=== PATIENT | male | born 2000 | race Caucasian/White ===

== ENCOUNTER 2021-02-04 14:17 | Emergency (ER) | payer BC ==
[2021-02-04 14:31] VITALS: BP 109/72; PULSE 69; RESP 20; TEMP 98
--- NOTE | 2021-02-04 15:11 | ED ---
Chest Pain HPI - General Chief Complaint: Chest Pain Stated Complaint: Sent from [facility] Time Seen by Provider: 02/04/21 14:38 Source: patient Mode of arrival: ambulatory Limitations: no limitations - History of Present Illness Initial Comments: 20-year-old male presents to emergency Department with a chief complaint of palpitations. Patient reports he began feeling the symptoms last night after he smoked a pH CVA. States is not his first time using this today but he has never felt symptoms like this before. States the symptoms continued this morning given that he was not using anything. Patient reports his heart rate would fluctuate between 60 and 100 bpm. States it would go from high to low with a matter of seconds. Reports feeling that his heart would "skip a beat" and then suddenly accelerate. Father states they have a history of A. fib and the family which she was diagnosed with an early age. Patient reports feeling slightly shortness of breath after draping last night but nothing since. He does have history of asthma as well. He denies any particular chest pain or tightness. Denies any lightheadedness, dizziness, diaphoretic episodes. - Related Data Home Medications Medication Instructions Recorded Confirmed Albuterol Nebulized [Ventolin 2.5 mg INHALATION Q4H PRN 01/07/16 01/07/16 Nebulized] Cetirizine HCl [Zyrtec] 10 mg PO DAILY 01/07/16 01/07/16 Cholecalciferol (Vitamin D3) 50,000 unit PO DAILY 01/07/16 01/07/16 [Vitamin D] Fluticasone Nasal [place] [Flonase 1 spray EA NOSTRIL BID 01/07/16 01/07/16 Nasal [place]] Mometasone/Formoterol [Dulera 100 2 puff INHALATION BID 01/07/16 01/07/16 Mcg/5 Mcg Inhaler] Allergies Allergy/AdvReac Type Severity Reaction Status Date / Time No Known Allergies Allergy Verified 02/04/21 14:31 Review of Systems ROS Statement: Those systems with pertinent positive or pertinent negative responses have been documented in the HPI. ROS Other: All systems not noted in ROS Statement are negative. EKG Findings - EKG Comments: EKG Findings:: Sinus arrhythmia. Ventricular rate 65, TX 164, QRS 90, QTC 413. Past Medical History Past Medical History: Asthma Additional Past Medical History / Comment(s): mold allergy History of Any Multi-Drug Resistant Organisms: None Reported Past Surgical History: No Surgical Hx Reported Past Psychological History: No Psychological Hx Reported Smoking Status: Vaper Past Alcohol Use History: None Reported Past Drug Use History: Marijuana General Exam Limitations: no limitations General appearance: alert, in no apparent distress Head exam: Present: atraumatic, normocephalic, normal inspection Eye exam: Present: normal appearance, PERRL, EOMI Pupils: Present: normal accommodation ENT exam: Present: normal exam, normal oropharynx, mucous membranes moist, TM's normal bilaterally, normal external ear exam Neck exam: Present: normal inspection, full ROM. Absent: tenderness Respiratory exam: Present: normal lung sounds bilaterally. Absent: respiratory distress, wheezes, rales, rhonchi, stridor, chest wall tenderness, accessory muscle use Cardiovascular Exam: Present: regular rate, normal rhythm, normal heart sounds. Absent: systolic murmur Extremities exam: Present: normal inspection, full ROM, normal capillary refill, other (Palpable ulnar and radial pulses bilaterally ). Absent: tenderness, pedal edema, joint swelling, calf tenderness Back exam: Present: normal inspection, full ROM. Absent: tenderness, CVA tenderness (R), CVA tenderness (L) Neurological exam: Present: alert, oriented X3, normal gait Psychiatric exam: Present: normal affect, normal mood. Absent: depressed Skin exam: Present: warm, dry, intact, normal color Course Vital Signs 02/04/21 02/04/21 02/04/21 14:29 15:36 16:34 Temperature 98.0 F 98.0 F Pulse Rate 69 69 Pulse Rate [ 69 Guest Relations Agent ] Respiratory 20 20 Rate Blood Pressure 109/72 109/72 O2 Sat by Pulse 99 99 Oximetry Chest Pain MDM - MDM 20-year-old male presents to emergency Department with a chief complaint of palpitations. EKG showing sinus arrhythmia. Chest x-ray unremarkable. Negative laboratory workup. Physical examination is unremarkable. I suspect the patient's symptoms were secondary to smoking THC vape. I advised him and the father to follow up with the primary care physician. Return parameters discussed with them were understanding and agreeable. Case discussed with Dr. Rai. Disposition Clinical Impression: Heart palpitations Disposition: HOME SELF-CARE Condition: Stable Instructions (If sedation given, give patient instructions): Heart Palpitations (DC) Additional Instructions: Please return to the Emergency Department if symptoms worsen or any other concerns. Is patient prescribed a controlled substance at d/c from ED?: No Referrals: José Miguel Robles MD [Primary Care Provider] - 1-2 days Time of Disposition: 16:21
[2021-02-04 15:27] LABS: Basophils # (A) 0.1 k/uL (0-0.2); Basophils % (A) 1 %; Eosinophils # (A) 0.3 k/uL (0-0.7); Eosinophils % (A) 4 %; HCT 41.4 % (39.0-53.0); HGB 14.2 gm/dL (13.0-17.5); Lymphocytes # (A) 2.6 k/uL (1.0-4.8); Lymphocytes % (A) 37 %; MCH 28.1 pg (25.0-35.0); MCHC 34.2 g/dL (31.0-37.0); MCV 82.1 fL (80.0-100.0); Mean Platelet Volume 7.1; Monocytes # (A) 0.7 k/uL (0-1.0); Monocytes % (A) 9 %; Neutrophils # (A) 3.4 k/uL (1.3-7.7); Neutrophils % (A) 48 %; Platelet Count 251 k/uL (150-450); RBC 5.05 m/uL (4.30-5.90); RDW 12.9 % (11.5-15.5); WBC 7.2 k/uL (4.0-11.0)
[2021-02-04 15:35] LABS: Partial Thromboplastin Time 25.7 sec (22.0-30.0)
[2021-02-04 15:37] LABS: ALT 11 U/L (4-49); AST 17 U/L (17-59); African American GFR (CKD) >90 (>60 ml/min/1.73 sqM); Albumin 4.6 g/dL (3.5-5.0); Alkaline Phosphatase 71 U/L (38-126); Anion Gap 8 mmol/L; Blood Urea Nitrogen 13 mg/dL (9-20); Carbon Dioxide 26 mmol/L (22-30); Chloride 104 mmol/L (98-107); Glucose 85 mg/dL (74-99); Magnesium 2.1 mg/dL (1.6-2.3); Non-African American GFR(CKD) >90 (>60 ml/min/1.73 sqM); Potassium 4.6 mmol/L (3.5-5.1); Sodium 138 mmol/L (137-145); Total Bilirubin 0.4 mg/dL (0.2-1.3); Total Protein 7.1 g/dL (6.3-8.2)
--- NOTE | 2021-02-04 16:00 | XR ---
EXAMINATION TYPE: XR chest 2V DATE OF EXAM: 02/04/2021 COMPARISON: NONE HISTORY: Chest pain TECHNIQUE: Frontal and lateral views of the chest are obtained. FINDINGS: There is no focal air space opacity, pleural effusion, or pneumothorax seen. The cardiac silhouette size is within normal limits. The osseous structures are intact. IMPRESSION: No acute cardiopulmonary process.
== END 2021-02-04 16:37 | disposition home or self-care (01) ==
LOC: EC 14:17
DX: R00.2 Palpitations (principal); R07.9 Chest pain, unspecified; R06.02 Shortness of breath; J45.909 Unspecified asthma, uncomplicated; F12.90 Cannabis use, unspecified, uncomplicated; F17.290 Nicotine dependence, other tobacco product, uncomplicated; Z79.51 Long term (current) use of inhaled steroids
CPT/HCPCS: 36415; 71046; 80053; 83735; 84484; 85025; 85610; 85730; 93005; 99285

== ENCOUNTER 2021-03-13 02:33 | Emergency (ER) | payer BC ==
[2021-03-13 02:42] VITALS: RESP 16; TEMP 97.6
[2021-03-13] MEDS ORDERED: IPRATROPIUM-ALBUTEROL 3 ML NEB INHALATION STA (02:55)
--- NOTE | 2021-03-13 02:55 | ED ---
Chest Pain HPI - General Chief Complaint: Chest Pain Stated Complaint: Chest pain Time Seen by Provider: 03/13/21 02:41 Source: patient, family Mode of arrival: wheelchair Limitations: no limitations - Related Data Home Medications Medication Instructions Recorded Confirmed Albuterol Nebulized [Ventolin 2.5 mg INHALATION Q4H PRN 01/07/16 01/07/16 Nebulized] Cetirizine HCl [Zyrtec] 10 mg PO DAILY 01/07/16 01/07/16 Cholecalciferol (Vitamin D3) 50,000 unit PO DAILY 01/07/16 01/07/16 [Vitamin D] Fluticasone Nasal [place] [Flonase 1 spray EA NOSTRIL BID 01/07/16 01/07/16 Nasal [place]] Mometasone/Formoterol [Dulera 100 2 puff INHALATION BID 01/07/16 01/07/16 Mcg/5 Mcg Inhaler] Allergies Allergy/AdvReac Type Severity Reaction Status Date / Time No Known Allergies Allergy Verified 03/13/21 02:39 Review of Systems ROS Statement: Those systems with pertinent positive or pertinent negative responses have been documented in the HPI. ROS Other: All systems not noted in ROS Statement are negative. EKG Findings - EKG Comments: EKG Findings:: EKG is sinus rhythm 71 AR 162 QRS 100 QTc 404 Past Medical History Past Medical History: Asthma Additional Past Medical History / Comment(s): mold allergy History of Any Multi-Drug Resistant Organisms: None Reported Past Surgical History: No Surgical Hx Reported Past Psychological History: No Psychological Hx Reported Smoking Status: Vaper Past Alcohol Use History: None Reported Past Drug Use History: Marijuana General Exam Limitations: no limitations Course Vital Signs 03/13/21 02:39 Temperature 97.6 F Pulse Rate 82 Respiratory 16 Rate Blood Pressure 118/75 O2 Sat by Pulse 100 Oximetry Disposition Clinical Impression: Atypical chest pain, Panic attack Disposition: HOME SELF-CARE Condition: Good Instructions (If sedation given, give patient instructions): Chest Pain (ED) Is patient prescribed a controlled substance at d/c from ED?: No Referrals: José Miguel Robles MD [Primary Care Provider] - 1-2 days
[2021-03-13 03:48] VITALS: BP 120/83; PULSE 67
== END 2021-03-13 03:47 | disposition home or self-care (01) ==
LOC: EC 02:33
DX: F41.0 Panic disorder [episodic paroxysmal anxiety] (principal); R07.89 Other chest pain; J45.909 Unspecified asthma, uncomplicated; F17.290 Nicotine dependence, other tobacco product, uncomplicated; F12.90 Cannabis use, unspecified, uncomplicated; Z79.51 Long term (current) use of inhaled steroids
CPT/HCPCS: 93005; 99284

== ENCOUNTER → 2024-02-12 | Outpatient (CLI) | payer BC ==
--- NOTE | 2024-02-12 16:57 | CA ---
Transthoracic Echo Report Name: Darwin Price Age: 23 Gender: M : 2000 Exam Date: 02/12/2024 14:18 Exam Location: [place] Ht (in): 73 Wt (lb): 175 Ordering Physician: Aung Ozuna MD Attending/Referring Phys: Elisa Beck PAC Experimental Flight Test Mechanic Meera Wu RDCS Procedure CPT: Indications: R01.1 CARDIAC MURMUR, UNSPECIFIED Cardiac Hx: Technical Quality: Fair Contrast 1: Total Dose (mL): Contrast 2: Total Dose (mL): MEASUREMENTS (Male / Female) Normal Values 2D ECHO LV Diastolic Diameter PLAX 4.9 cm 4.2 - 5.9 / 3.9 - 5.3 cm LV Systolic Diameter PLAX 3.6 cm IVS Diastolic Thickness 1.0 cm 0.6 - 1.0 / 0.6 - 0.9 cm LVPW Diastolic Thickness 1.3 cm 0.6 - 1.0 / 0.6 - 0.9 cm LV Relative Wall Thickness 0.5 RV Internal Dim ED PLAX 3.2 cm LV Diastolic Volume MOD 4C 140.4 cm??? LV Systolic Volume MOD 4C 62.2 cm??? LV Ejection Fraction MOD 4C 55.7 % LV Cardiac Index MOD 4C 2436.1 cm???/min???m??? LV Diastolic Length 4C 9.3 cm LV Systolic Length 4C 6.8 cm LA Volume 58.0 cm??? 18 - 58 / 22 - 52 cm??? LA Volume Index 28.7 cm???/m??? 16 - 28 cm???/m??? M-MODE LV Diastolic Diameter MM 5.8 cm 4.2 - 5.9 / 3.9 - 5.3 cm LV Systolic Diameter MM 4.2 cm LV Cardiac Index MM Teich 2641.2 cm???/min???m??? IVS Diastolic Thickness MM 1.1 cm 0.6 - 1.0 / 0.6 - 0.9 cm LVPW Diastolic Thickness MM 1.1 cm 0.6 - 1.0 / 0.6 - 0.9 cm LV Relative Wall Thickness MM 0.4 0.24 - 0.42 / 0.22 - 0.42 LV Mass Index MM 131.4 g/m??? 49 - 115 / 43 - 95 g/m??? Aortic Root Diameter MM 2.3 cm LA Systolic Diameter MM 3.6 cm LA Ao Ratio MM 1.5 AV Cusp Separation MM 2.2 cm DOPPLER AV Peak Velocity 128.2 cm/s AV Peak Gradient 6.6 mmHg AV Mean Velocity 90.7 cm/s AV Mean Gradient 3.7 mmHg AV Velocity Time Integral 29.3 cm LVOT Peak Velocity 109.7 cm/s LVOT Peak Gradient 4.8 mmHg LVOT Velocity Time Integral 22.0 cm MV Area PHT 5.1 cm??? Mitral E Point Velocity 81.8 cm/s Mitral A Point Velocity 58.0 cm/s Mitral E to A Ratio 1.4 MV Deceleration Time 149.8 ms TR Peak Velocity 176.2 cm/s TR Peak Gradient 12.4 mmHg Right Ventricular Systolic Press 17.4 mmHg FINDINGS Left Ventricle Mildly increased left ventricular mass. Normal Left ventricular size, wall thickness, systolic function with no obvious regional wall motion abnormalities. Normal Left ventricular diastolic filling pattern. Left ventricular ejection fraction is estimated at 55-60 %. Right Ventricle Normal right ventricular size and function. Right ventricular systolic pressure within normal limits. Right Atrium Normal right atrial size. Left Atrium Normal left atrial size. Mitral Valve Structurally normal mitral valve. No mitral stenosis. Mild mitral regurgitation. Aortic Valve Trileaflet aortic valve. No aortic valve stenosis or regurgitation. Tricuspid Valve Structurally normal tricuspid valve. Mild tricuspid regurgitation. Pulmonic Valve Structurally normal pulmonic valve. Pericardium No pericardial effusion. Aorta Normal size aortic root and proximal ascending aorta. CONCLUSIONS LVEF estimated 55% Normal LV cavity size and wall thickness Normal RV size and function No significant valvular dysfunction Previewed by: Dr Kristofer White (Electronically Signed) Final Date: 12 Feb 2024 16:56
== END | disposition home or self-care (01) ==
LOC: RADECHMAIN 14:14
PROVIDERS: ATTEND Family Medicine
DX: R01.1 Cardiac murmur, unspecified (principal)
CPT/HCPCS: 93306

== ENCOUNTER → 2025-01-21 | Outpatient (CLI) | payer BC ==
[2025-01-21 14:53] LABS: Basophils # (A) 0.09 X 10*3/uL (0.00-0.10); Basophils % (A) 1.3 %; Eosinophils # (A) 0.41 X 10*3/uL (0.04-0.35); HCT 44.8 % (39.6-50.0); HGB 14.5 g/dL (13.0-17.0); Lymphocytes # (A) 2.15 X 10*3/uL (0.90-5.00); Lymphocytes % (A) 31.4 %; MCH 27.5 pg (27.0-32.0); MCHC 32.4 g/dL (32.0-37.0); MCV 84.8 FL (80.0-97.0); Mean Platelet Volume 10.1 FL (9.5-12.2); Monocytes # (A) 0.76 X 10*3/uL (0.20-1.00); Monocytes % (A) 11.1 %; NRBC Per 100 WBC 0 X 10*3/uL (0.00-0.01); Neutrophils # (A) 3.42 X 10*3/uL (1.80-7.70); Neutrophils % (A) 49.9 %; Platelet Count 280 X 10*3/uL (140-440); RBC 5.28 X 10*6/uL (4.40-5.60); RDW 13.3 % (11.5-14.5); WBC 6.85 X 10*3/uL (4.50-10.00)
[2025-01-21 15:43] LABS: ALT 24 U/L (10-49); AST 19 U/L (14-35); Albumin 4.5 g/dL (3.8-4.9); Albumin/Globulin Ratio 2.14 Ratio (1.60-3.17); Alkaline Phosphatase 73 U/L (41-126); BUN/Creat Ratio 12.44 Ratio (12.00-20.00); Blood Urea Nitrogen 11.2 mg/dL (9.0-27.0); Calcium 9.6 mg/dL (8.7-10.3); Carbon Dioxide 25.2 mmol/L (21.6-31.8); Chloride 104 mmol/L (96-109); Chol/HDL Ratio 3.04 Ratio; Globulin 2.1 g/dL (1.6-3.3); Glucose 89 mg/dL (70-110); LDL Cholesterol,Calculated 102.8 mg/dL (0.0-131.0); Potassium 4.5 mmol/L (3.5-5.5); Sodium 138 mmol/L (135-145); T4, Free (Free Thyroxine) 1.11 ng/dL (0.80-1.80); Total Bilirubin 0.4 mg/dL (0.3-1.2); Total Protein 6.6 g/dL (6.2-8.2); VLDL Calculation 13.88 mg/dL (5.00-40.00)
== END | disposition home or self-care (01) ==
LOC: LABWHC1 09:27
PROVIDERS: ATTEND Family Medicine
DX: Z00.00 Encounter for general adult medical examination without abnormal findings (principal); Z13.220 Encounter for screening for lipoid disorders; Z13.1 Encounter for screening for diabetes mellitus; E55.9 Vitamin D deficiency, unspecified
CPT/HCPCS: 36415; 80053; 80061; 82306; 83036; 84439; 84443; 85025